=== PATIENT | female | born 1995 | race Caucasian/White ===

== ENCOUNTER 2016-06-29 11:27 | Emergency (ER) | payer BC, MEDICAID ==
--- NOTE | 2016-06-29 11:52 | ER Document Report ---
ED Medical Screen (RME) - General Stated Complaint: ABDOMINAL PAIN Mode of Arrival: Ambulatory Information source: Patient Notes: Patient presents complaining of left lower quadrant abdominal pain that occasionally will radiate vaginally. Patient denies any vaginal bleeding. No nausea or vomiting. Patient reports last bowel movement was 3 days ago. Patient denies any fever, urinary symptoms. hx: Asthma I have greeted and performed a rapid initial assessment of this patient. A comprehensive ED assessment and evaluation of the patient, analysis of test results and completion of the medical decision making process will be conducted by additional ED providers. TRAVEL OUTSIDE OF THE [place] IN LAST 30 DAYS: No - Related Data Allergies/Adverse Reactions: No Known Allergies Allergy (Verified 06/29/16 11:49) Past Medical History Pulmonary Medical History: Reports: Hx Asthma - Immunizations Hx Diphtheria, Pertussis, Tetanus Vaccination: Yes Physical Exam - Vital signs Vitals: Temp Pulse Resp BP Pulse Ox 98.1 F 81 16 132/73 H 98 06/29/16 11:31 06/29/16 11:31 06/29/16 11:31 06/29/16 11:31 06/29/16 11:31 - Abdominal Tenderness: Tender - Left lower quadrant Course - Vital Signs Vital signs: Temp Pulse Resp BP Pulse Ox 98.1 F 81 16 132/73 H 98 06/29/16 11:31 06/29/16 11:31 06/29/16 11:31 06/29/16 11:31 06/29/16 11:31
[2016-06-29 12:39] LABS: ABSOLUTE BASOPHILS # (AUTO) 0.1 10^3/uL (0.0-0.2); ABSOLUTE EOSINOPHILS # (AUTO) 0.4 10^3/uL (0.0-0.6); ABSOLUTE LYMPHOCYTES (AUTO) 3.8 10^3/uL (0.5-4.7); ABSOLUTE MONOCYTES (AUTO) 0.6 10^3/uL (0.1-1.4); ABSOLUTE NEUT (AUTO) 5.2 10^3/uL (1.7-8.2); BASOPHILS % (AUTO) 0.5 % (0-2); EOSINOPHILS % (AUTO) 3.7 % (0-6); HEMATOCRIT 36.1 % (36.0-47.0); HGB HCT DIFFERENCE -0.1; LYMPHOCYTES % (AUTO) 37.9 % (13-45); MEAN CORPUSCULAR HEMOGLOBIN 26.4 pg (27.0-33.4); MEAN CORPUSCULAR HGB CONC 33.4 g/dL (32.0-36.0); MEAN CORPUSCULAR VOLUME 79 fl (80-97); MONOCYTES % (AUTO) 6.2 % (3-13); RED BLOOD COUNT 4.57 10^6/uL (3.72-5.28); RED CELL DISTRIBUTION WIDTH 15.2 % (11.5-14.0); SEGMENTED NEUTROPHILS % (AUTO) 51.7 % (42-78); WHITE BLOOD COUNT 10.1 10^3/uL (4.0-10.5)
[2016-06-29 12:48] LABS: APPEARANCE,URINE CLEAR; BILIRUBIN,URINE NEGATIVE (NEGATIVE); GLUCOSE, URINE NEGATIVE (NEGATIVE); KETONES,URINE NEGATIVE (NEGATIVE); LEUKOCYTE ESTERASE,URINE NEGATIVE (NEGATIVE); NITRITE,URINE NEGATIVE (NEGATIVE); PROTEIN,URINE NEGATIVE (NEGATIVE); URINE SPECIFIC GRAVITY 1.004; UROBILINOGEN,URINE NEGATIVE mg/dL (<2.0)
[2016-06-29 13:01] LABS: ALANINE AMINOTRANSFERASE 24 U/L (5-35); ALKALINE PHOSPHATASE 74 U/L (50-135); ANION GAP 11 (5-19); ASPARTATE AMINO TRANSFERASE 18 U/L (5-30); BILIRUBIN,DIRECT 0.2 mg/dL (0.0-0.4); BILIRUBIN,TOTAL 0.4 mg/dL (0.2-1.3); BLOOD UREA NITROGEN 12 mg/dL (7-20); CALCIUM 9.4 mg/dL (8.4-10.2); CARBON DIOXIDE 26 mmol/L (22-30); CHLORIDE 107 mmol/L (98-107); CREATININE RESULT 0.85 mg/dL (0.52-1.25); GLUCOSE 71 mg/dL (75-110); POTASSIUM 4.6 mmol/L (3.6-5.0); SODIUM 143.8 mmol/L (137-145); TOTAL PROTEIN 7.2 g/dL (6.3-8.2)
--- NOTE | 2016-06-29 13:27 | ER Document Report ---
ED General - General Chief Complaint: Abdominal Pain Stated Complaint: ABDOMINAL PAIN Mode of Arrival: Ambulatory Information source: Patient Notes: This is a 20-year-old female who presents to the ER today for evaluation of vaginal pain. She states that she has had intermittent vaginal pain since the age of menarche. Today she had a pain episode that was very similar to her prior episodes which she describes as very sharp, located in her vaginal area and transient with complete resolution within 2 or 3 minutes. She had no lateralizing pain. No nausea or vomiting. No fevers or chills. She has had no dysuria. Her last menstral period Was June 13 through June 16. She is tolerating food and liquids well and states that she ate chicken wings last night for dinner. However her second complaint today is of constipation. Her last bowel movement was two days ago and was described as hard. TRAVEL OUTSIDE OF THE [place] IN LAST 30 DAYS: No - Related Data Allergies/Adverse Reactions: No Known Allergies Allergy (Verified 06/29/16 11:49) Past Medical History - General Information source: Patient - Social History Smoking Status: Current Every Day Smoker Chew tobacco use (# tins/day): Yes Frequency of alcohol use: None Drug Abuse: Marijuana Family History: Reviewed & Not Pertinent Patient has suicidal ideation: No Patient has homicidal ideation: No Pulmonary Medical History: Reports: Hx Asthma Renal/ Medical History: Denies: Hx Peritoneal Dialysis - Immunizations Hx Diphtheria, Pertussis, Tetanus Vaccination: Yes Review of Systems - Review of Systems Notes: REVIEW OF SYSTEMS: CONSTITUTIONAL : Denies fever, chills, or sweats. Denies recent illness. EENT: Denies eye, ear, throat, or mouth pain or symptoms. Denies nasal or sinus congestion. CARDIOVASCULAR: Denies chest pain. RESPIRATORY: Denies cough, cold, or chest congestion. Denies shortness of breath, difficulty breathing, or wheezing. GASTROINTESTINAL: See history of present illness GENITOURINARY: Denies difficulty urinating, painful urination, burning, frequency, or blood in urine. FEMALE GENITOURINARY: As per history of present illness MUSCULOSKELETAL: Denies neck or back pain or joint pain or swelling. SKIN: Denies rash or skin lesions. HEMATOLOGIC : Denies easy bruising or bleeding. LYMPHATIC: Denies swollen, enlarged glands. NEUROLOGICAL: Denies altered mental status or loss of consciousness. Denies headache. PSYCHIATRIC: Denies anxiety or stress or depression. ALL OTHER SYSTEMS REVIEWED AND NEGATIVE. Physical Exam - Vital signs Vitals: Temp Pulse Resp BP Pulse Ox 98.1 F 81 16 132/73 H 98 06/29/16 11:06/29/16 11:31 06/29/16 11:06/29/16 11:06/29/16 11:31 - Notes Notes: PHYSICAL EXAMINATION: GENERAL: Well-appearing, well-nourished and in no acute distress. Pleasant and conversant, texting on phone, and in no acute distress. HEAD: Atraumatic, normocephalic. EYES: Pupils equal round and reactive to light, extraocular movements intact, sclera anicteric, conjunctiva are normal. ENT: nares patent, oropharynx clear without exudates. Moist mucous membranes. NECK: Normal range of motion, supple without lymphadenopathy LUNGS: Breath sounds clear to auscultation bilaterally and equal. No wheezes rales or rhonchi. HEART: Regular rate and rhythm without murmurs ABDOMEN: Soft, nontender, normoactive bowel sounds. No guarding, no rebound. No masses appreciated. PELVIC: No external lesions. No discharge or blood in vault. Cervix visualized wnl. Cultures taken. No CMT. No adnexal masses or tenderness to palpation EXTREMITIES: Normal range of motion, no pitting or edema. No cyanosis. NEUROLOGICAL: Cranial nerves grossly intact. Normal speech. No gross focal motor or sensory deficits appreciated. PSYCH: Normal mood, normal affect. SKIN: Warm, Dry, normal turgor, no rashes or lesions noted. Course - Re-evaluation Re-evalutation: 06/29/16 14:59 Patient has a very reassuring exam including pelvic exam along with reassuring vitals. I see no clinical indication of bacterial infection or STD. She does report minor constipation and so will discharge with MiraLAX. Patient to follow up with her primary care physician and she also is encouraged to follow- up for a Pap smear as she has not had this done before. Return precautions were discussed. - Vital Signs Vital signs: Temp Pulse Resp BP Pulse Ox 98.1 F 81 16 132/73 H 98 06/29/16 11:31 06/29/16 11:31 06/29/16 11:06/29/16 11:06/29/16 11:31 - Laboratory Result Diagrams: 06/29/16 12:18 06/29/16 12:18 Laboratory results interpreted by me: 06/29/16 06/29/16 12:18 12:18 MCV 79 L MCH 26.4 L RDW 15.2 H Glucose 71 L Discharge - Discharge Clinical Impression: Vaginal pain Constipation Qualifiers: Constipation type: unspecified constipation type Qualified Code(s): K59.00 - Constipation, unspecified Condition: Stable Disposition: HOME, SELF-CARE Additional Instructions: Take miralax as prescribed as needed for constipation. Drink plenty of water. Follow up as discussed with PCP or [facility] for regular PAP smears. Return to ER for worsening symptoms or concerns. Prescriptions: Polyethylene Glycol 3350 [Miralax] 1 cap PO DAILY #527 powder
[2016-06-29 16:46] VITALS: BP 130/70
[2016-06-29 16:57] LABS: CHLAM PCR DETECTED (NOT DETECT)
== END 2016-06-29 16:45 | disposition home or self-care (01) ==
LOC: ER 11:27
DX: R10.2 Pelvic and perineal pain (principal); K59.00 Constipation, unspecified; F17.200 Nicotine dependence, unspecified, uncomplicated; J45.909 Unspecified asthma, uncomplicated
CPT/HCPCS: 36415; 74000; 80053; 81001; 84703; 85025; 87210; 87491; 87591; 99283

== ENCOUNTER 2018-08-25 19:46 | Emergency (ER) | payer BC, OTHER ==
--- NOTE | 2018-08-25 20:22 | ER Document Report ---
ED Medical Screen (RME) - General Chief Complaint: Vomiting Stated Complaint: VOMITING BLOOD Time Seen by Provider: 08/25/18 20:03 Primary Care Provider: CAREY LINARES NP [Primary Care Provider] - Follow up as needed Mode of Arrival: Ambulatory Information source: Patient Notes: Patient patient presents emergency department with complaints that she vomited last night and also her nose started bleeding. Reports she noticed blood in her vomit at that time. Patient reports some abdominal pain. Her pain is pain in the abdomen hurting even more on the right side. Denies fever or diarrhea. Denies past medical history of bleeding disorders clotting disorders. Patient is approximately 13 weeks . This was confirmed when she went to the emergency department at 6 weeks in [place]. She denies trauma. Denies pain with void denies vaginal bleeding. Denies history of high blood pressure. I have greeted and performed a rapid initial assessment of this patient. A comprehensive ED assessment and evaluation of the patient, analysis of test results and completion of the medical decision making process will be conducted by additional ED providers. Dictation of this chart was performed using voice recognition software; therefore, there may be some unintended grammatical errors. TRAVEL OUTSIDE OF THE [place] IN LAST 30 DAYS: No - Related Data Allergies/Adverse Reactions: No Known Allergies Allergy (Verified 06/29/16 11:49) Past Medical History Pulmonary Medical History: Reports: Hx Asthma Renal/ Medical History: Denies: Hx Peritoneal Dialysis - Immunizations Hx Diphtheria, Pertussis, Tetanus Vaccination: Yes Physical Exam - Vital signs Vitals: Temp Pulse Resp BP Pulse Ox 99.1 F 87 16 125/75 98 08/25/18 19:53 08/25/18 19:53 08/25/18 19:53 08/25/18 19:53 08/25/18 19:53 Course - Vital Signs Vital signs: Temp Pulse Resp BP Pulse Ox 99.1 F 87 16 125/75 98 08/25/18 19:53 08/25/18 19:53 08/25/18 19:53 08/25/18 19:53 08/25/18 19:53 Doctor's Discharge - Discharge Referrals: CAREY LINARES NP [Primary Care Provider] - Follow up as needed
[2018-08-25 20:40] LABS: ABSOLUTE BASOPHILS # (AUTO) 0.1 10^3/uL (0.0-0.2); ABSOLUTE EOSINOPHILS # (AUTO) 0.3 10^3/uL (0.0-0.6); ABSOLUTE LYMPHOCYTES (AUTO) 3.6 10^3/uL (0.5-4.7); ABSOLUTE MONOCYTES (AUTO) 0.6 10^3/uL (0.1-1.4); ABSOLUTE NEUT (AUTO) 6.1 10^3/uL (1.7-8.2); BASOPHILS % (AUTO) 0.5 % (0-2); EOSINOPHILS % (AUTO) 2.4 % (0-6); HEMATOCRIT 37.3 % (36.0-47.0); HEMOGLOBIN 12.5 g/dL (12.0-15.5); LYMPHOCYTES % (AUTO) 33.8 % (13-45); MEAN CORPUSCULAR HGB CONC 33.4 g/dL (32.0-36.0); MEAN CORPUSCULAR VOLUME 81 fl (80-97); MONOCYTES % (AUTO) 5.3 % (3-13); PLATELET COUNT 241 10^3/uL (150-450); RED BLOOD COUNT 4.61 10^6/uL (3.72-5.28); RED CELL DISTRIBUTION WIDTH 14.7 % (11.5-14.0); TOTAL CELLS COUNTED % (AUTO) 100 %; WHITE BLOOD COUNT 10.6 10^3/uL (4.0-10.5)
[2018-08-25 20:56] LABS: ALANINE AMINOTRANSFERASE 17 U/L (9-52); ALBUMIN 3.6 g/dL (3.5-5.0); ALKALINE PHOSPHATASE 51 U/L (38-126); ANION GAP 11 (5-19); ASPARTATE AMINO TRANSFERASE 24 U/L (14-36); BILIRUBIN,DIRECT 0.2 mg/dL (0.0-0.4); BILIRUBIN,TOTAL 0.3 mg/dL (0.2-1.3); BLOOD UREA NITROGEN 9 mg/dL (7-20); CALCIUM 9.2 mg/dL (8.4-10.2); CARBON DIOXIDE 24 mmol/L (22-30); CHLORIDE 104 mmol/L (98-107); GLUCOSE 82 mg/dL (75-110); LIPASE 76.2 U/L (23-300); POTASSIUM 4.6 mmol/L (3.6-5.0); SODIUM 138.6 mmol/L (137-145); TOTAL PROTEIN 6.8 g/dL (6.3-8.2)
[2018-08-25 21:02] LABS: APPEARANCE,URINE CLOUDY; BILIRUBIN,URINE NEGATIVE (NEGATIVE); COLOR,URINE YELLOW; GLUCOSE, URINE NEGATIVE (NEGATIVE); KETONES,URINE NEGATIVE (NEGATIVE); LEUKOCYTE ESTERASE,URINE SMALL (NEGATIVE); NITRITE,URINE NEGATIVE (NEGATIVE); PROTEIN,URINE NEGATIVE (NEGATIVE); URINE SPECIFIC GRAVITY 1.017; UROBILINOGEN,URINE NEGATIVE mg/dL (<2.0)
--- NOTE | 2018-08-25 21:34 | ER Document Report ---
ED General - General Chief Complaint: Vomiting Stated Complaint: VOMITING BLOOD Time Seen by Provider: 08/25/18 20:03 Primary Care Provider: [facility] [Provider Group] - Follow up in 1 week CAREY LINARES NP [NO LOCAL MD] - Follow up as needed Mode of Arrival: Ambulatory Notes: Patient is a G1, P0 22-year-old female who presents the emergency department with a chief complaint of vomiting blood twice last night. She is 13 weeks gestation per her last menstrual cycle of May 28. She states that her symptoms started last night. Denies any vomiting today. Patient said that she woke up in the middle the night and felt that she was getting sick and subsequently went to the bathroom and ended up throwing up. She also noticed that she had some clots and streaks. After vomiting she rubbed her nose and noticed that she was having a bloody nose at that time. She has not had any vaginal bleeding, lower abdominal pain, or any other symptoms. She does admit to having some nausea. She states that she has had some nausea when she eats or smell certain foods. Denies any exposure to any of those foods that trigger her vomiting. Denies any dysuria. Past medical history includes asthma and hypertension. She does not currently take any medication. She has gone for care yet. TRAVEL OUTSIDE OF THE [place] IN LAST 30 DAYS: No - Related Data Allergies/Adverse Reactions: No Known Allergies Allergy (Verified 06/29/16 11:49) Past Medical History - General Information source: Patient - Social History Smoking Status: Former Smoker Frequency of alcohol use: None Drug Abuse: None Family History: Reviewed & Not Pertinent Patient has suicidal ideation: No Patient has homicidal ideation: No Pulmonary Medical History: Reports: Hx Asthma Renal/ Medical History: Denies: Hx Peritoneal Dialysis - Immunizations Hx Diphtheria, Pertussis, Tetanus Vaccination: Yes Review of Systems - Review of Systems Notes: REVIEW OF SYSTEMS: CONSTITUTIONAL : Denies recent illness. Denies recent unintentional weight loss. Denies fever, chills, or sweats. EENT: Denies eye, ear, throat, or mouth pain, discharge, or symptoms. Denies nasal or sinus congestion. CARDIOVASCULAR: Denies chest pain. RESPIRATORY: Denies shortness of breath, cough, congestion, difficulty breathing, or wheezing. GASTROINTESTINAL: Denies nausea, vomiting, and diarrhea. Denies abdominal pain. Denies constipation. Last BM: Today GENITOURINARY: Denies difficulty urinating, burning, blood in urine, urgency or frequency. FEMALE GENITOURINARY: See HPI MUSCULOSKELETAL: Denies neck and back pain. Denies joint pain or swelling. SKIN: Denies rash, itchiness, or lesions HEMATOLOGIC : Denies easy bruising or bleeding. LYMPHATIC: Denies swollen, painful, enlarged glands. NEUROLOGICAL: Denies no numbness or tingling denies weakness. Denies headache. Denies altered mental status. Denies alteration in speech. PSYCHIATRIC: Denies stress, anxiety, alteration in sleep patterns, or depression. All other systems reviewed and negative. Physical Exam - Vital signs Vitals: Temp Pulse Resp BP Pulse Ox 99.1 F 87 16 125/75 98 08/25/18 19:53 08/25/18 19:53 08/25/18 19:53 08/25/18 19:53 08/25/18 19:53 - Notes Notes: PHYSICAL EXAMINATION: GENERAL: Appears well, healthy, well-nourished, no acute distress. HEAD: Normocephalic, atraumatic. EYES: PERRL, conjunctiva normal, all extraocular movements intact, sclera nonicteric ENT: Moist mucous membranes. NECK: Supple, no noticeable swelling, redness, rash. Normal range of motion. LUNGS: Equal breath sounds bilaterally and clear to auscultation. No wheezes rales or rhonchi. CARDIOVASCULAR: S1-S2, regular rate, regular rhythm. Radial pulses 2+, normal. ABDOMEN: Normoactive bowel sounds. Soft, nontender, no guarding, no rebound tenderness, and no masses palpated. Uterus noted about 13 cm above symphysis pubis. Consistent with 13 weeks gestation. EXTREMITIES: Normal strength and range of motion, no pitting or edema. No cyanosis. NEUROLOGICAL: Moves all extremities upon command. Strength 5/5 in all extremities. PSYCH: Normal mood, normal affect. SKIN: Warm, dry. No rash, lesions, ulcerations noted. Normal skin turgor. Course - Re-evaluation Re-evalutation: 08/26/18 00:05 Patient's ultrasound shows a normal 13-week intrauterine . I have discussed with the patient that she may have had epistaxis last night, causing her to vomit. I have explained to her that epistaxis is very common in . Her hemoglobin hematocrit are stable at this time. Her urinalysis is normal. Her serum hCG is consistent with her 13 weeks of gestation. I do not suspect the patient has any life-threatening etiology at this time. Patient has not vomited at all today. She will follow[facility]up with [facility] or her [facility] signed by DAMARIS. She is in agreement with this plan. Verbal discharge instructions were given to the patient. They verbalized understanding. They are stable for discharge. - Vital Signs Vital signs: Temp Pulse Resp BP Pulse Ox 99.1 F 87 16 125/75 98 08/25/18 19:53 08/25/18 19:53 08/25/18 19:53 08/25/18 19:53 08/25/18 19:53 - Laboratory Result Diagrams: 08/25/18 20:20 08/25/18 20:20 Laboratory results interpreted by me: 08/25/18 08/25/18 08/25/18 20:15 20:20 20:20 WBC 10.6 H RDW 14.7 H Beta HCG, Quant 39130.00 H Ur Leukocyte Esterase SMALL H Urine Ascorbic Acid 40 H Discharge - Discharge Clinical Impression: Vomiting Qualifiers: Vomiting type: unspecified Vomiting Intractability: non-intractable Nausea presence: with nausea Qualified Code(s): R11.2 - Nausea with vomiting, unspecified Qualifiers: Weeks of gestation: 13 weeks Qualified Code(s): Z3A.13 - 13 weeks gestation of Condition: Stable Disposition: HOME, SELF-CARE Instructions: Vomiting ([facility]) Additional Instructions: You are seen today in the emergency department for vomiting. The most likely cause of your vomiting is possibly the runny nose that you had. You have been given some Zofran, nausea medication. You take 1 tablet every 4-6 hours as needed for nausea. Your labs and ultrasound are normal. If you have worsening symptoms, or have any symptoms that are worrisome to you, please return to the emergency department. Please follow-up with [facility] in regards to this visit. Forms: Return to Work Referrals: CAREY LINARES NP [NO LOCAL MD] - Follow up as needed [facility] [Provider Group] - Follow up in 1 week
--- NOTE | 2018-08-25 23:39 | RADIOLOGY REPORT (SQ) ---
EXAM: Ultrasound less than 14 weeks CLINICAL DATA: 22-year-old female with bloody emesis, patient denies pain or vaginal bleeding. LMP: 05/25/2018 TECHNICAL DATA: Sonographic imaging of the pelvis was performed transabdominally with Doppler on 08/25/2018 at 10:56 PM COMPARISONS: None FINDINGS: The uterus is mildly enlarged and normal in configuration and measures: 13.9 x 5.4 x 9.8 cm. The cervix measures approximately 3.2 cm in length. There is a normal appearing intrauterine gestational sac. There is a single fetus present. The average crown-rump length measures 6.85 cm corresponding to a 13 week one day gestation. Doppler imaging reveals a heart rate of 147 bpm. The right ovary is grossly normal in size, shape and echogenicity and measures: 4.3 x 2.4 x 2.6 centimeters. The left ovary is not visualized on this examination. There is no free fluid in the pelvis. IMPRESSION: 1. Single living intrauterine with an estimated ultrasound age of 13 weeks one day corresponding to an estimated due date of 03/01/2019 . This corresponds with the expected clinical gestational age. 2. Nonvisualization of the left ovary on this examination. The right ovary is grossly unremarkable.
[2018-08-25] MEDS ORDERED: ONDANSETRON ODT 4 MG TAB (6 TAB/ER DISP) PO PRN (23:58)
[2018-08-26 05:26] VITALS: BP 113/86
== END 2018-08-26 00:20 | disposition home or self-care (01) ==
LOC: ER 19:46
DX: O99.611 Diseases of the digestive system complicating pregnancy, first trimester (principal); K92.0 Hematemesis; O99.511 Diseases of the respiratory system complicating pregnancy, first trimester; J45.909 Unspecified asthma, uncomplicated; O16.1 Unspecified maternal hypertension, first trimester; Z3A.13 13 weeks gestation of pregnancy; Z87.891 Personal history of nicotine dependence
CPT/HCPCS: 36415; 76801; 80053; 81001; 83690; 84702; 85025; 93976; 99284